=== PATIENT | male | born 1995 | race Caucasian/White ===

== ENCOUNTER 2017-06-04 17:21 | Emergency (ER) | payer OTHER ==
--- NOTE | 2017-06-04 17:41 | CPEKG ---
Heart Rate: 75 RR Interval: 800 P-R Interval: 140 QRSD Interval: 94 QT Interval: 348 QTC Interval: 389 P [place]: 78 QRS [place]: 115 T Wave [place]: 36 EKG Severity - ABNORMAL ECG - EKG Impression: SINUS RHYTHM EKG Impression: LEFT POSTERIOR FASCICULAR BLOCK EKG Impression: LOW VOLTAGE WITH RIGHT AXIS DEVIATION Electronically Signed By: Jose Miguel Voss 04-Jun-2017 21:19:50
--- NOTE | 2017-06-04 18:08 | EDPHY ---
H & P Time Seen by Provider: 06/04/17 18:01 HPI/ROS: Chief complaint. Shortness of breath, dark stools HPI. 21-year-old male presents with multiple complaints. Today at 11:00 a.m. he had a 10-15 minutes episode of sharp left anterior chest pain without radiation. There was some associated shortness of breath. However his discomfort was not worse with breathing or exertion. It was better with stretching. He then developed a migraine which he has had before he has had similar symptoms previously. Then this afternoon he noticed black tarry stools. Some periumbilical abdominal pain. No vomiting or diarrhea. ROS Constitutional. no fever/chills, no weakness Eyes. no problems with vision ENT. no sore throat, no nasal drainage Cardiovascular. Chest pain Respiratory. Shortness of breath Abdominal. Abdominal pain with black stools . no problems urinating MS. no calf pain/swelling, no neck/back pain, no joint pain Skin. no rash Lymph. no swollen glands Neuro. Headache Past Medical/Surgical History: Ankylosing spondylitis and rheumatoid arthritis Social History: Single, nonsmoker, no alcohol Smoking Status: Never smoked Physical Exam: General Appearance: Alert well-developed male mild distress vital signs stable Eyes: Pupils equal and round no pallor or injection. ENT, Mouth: Mucous membranes are moist. Respiratory: There are no retractions, lungs are clear to auscultation. Cardiovascular: Regular rate and rhythm. Gastrointestinal: Abdomen is soft with mild tenderness in the periumbilical as well as slight tenderness in the right lower quadrant. Normal bowel sounds. No masses. Rectal exam shows minimal stool Neurological: Awake and alert, sensory and motor exams grossly normal. Skin: Warm and dry, no rashes. Musculoskeletal: Neck is supple nontender. Extremities symmetrical, full range of motion. Psychiatric: Patient is oriented X 3, there is no agitation. Constitutional: Initial Vital Signs Temperature (C) 36.7 C 06/04/17 17:25 Heart Rate 88 06/04/17 17:25 Respiratory Rate 22 H 06/04/17 17:25 Blood Pressure 107/91 H 06/04/17 17:25 O2 Sat (%) 100 06/04/17 17:25 O2 Delivery Mode Room Air Allergies/Adverse Reactions: warfarin Allergy (Verified 06/04/17 17:24) Home Medications: Medication Instructions Recorded Adderall 10 MG (*) 06/04/17 Esomeprazole Mag Trihydrate 40 mg PO DAILY #10 shreman. 06/04/17 [Nexium] FOLIC ACID 06/04/17 Meloxicam 06/04/17 Methotrexate 06/04/17 Medical Decision Making - Diagnostics EKG Interpretation: EKG interpreted by me shows normal sinus rhythm with normal interval and axis. QRS shows a left posterior fascicular block. No significant ST elevation or depression. No arrhythmia. The rate is 70 Imaging Results: Imaging Impressions Chest X-Ray 06/04/17 18:21 Impression: No acute pulmonary disease. Procedures: IV normal saline ED Course/Re-evaluation: Re-evaluation 7:30 p.m.. Patient and I discussed laboratory evaluation, EKG findings, imaging studies, treatment plan including criteria for return importance of follow-up. He expresses understanding and agreement Patient has no abdominal pain, chest pain or shortness of breath Differential Diagnosis: I considered peptic ulcer disease, methotrexate toxicity, gastritis - Data Points Laboratory Results: Laboratory Results 06/04/17 17:45 06/04/17 17:45 06/04/17 06/04/17 06/04/17 18:15 17:45 17:45 WBC RBC Hgb Hct MCV MCH MCHC RDW Plt Count MPV Neut % (Auto) Lymph % (Auto) [place] % (Auto) Eos % (Auto) Baso % (Auto) Nucleat RBC Rel Count Absolute Neuts (auto) Absolute Lymphs (auto) Absolute Monos (auto) Absolute Eos (auto) Absolute Basos (auto) Absolute Nucleated RBC Immature Gran % Immature Gran # D-Dimer < 0.27 ug/mLFEU ug/mLFEU (0.00-0.50) Sodium 146 mEq/L H mEq/L (134-144) Potassium 3.7 mEq/L mEq/L (3.5-5.2) Chloride 104 mEq/L mEq/L (97-110) Carbon Dioxide 26 mEq/l mEq/l (22-31) Anion Gap 16 mEq/L mEq/L (8-16) BUN 23 mg/dL mg/dL (7-23) Creatinine 1.0 mg/dL mg/dL (0.7-1.3) Estimated GFR > 60 Glucose 85 mg/dL mg/dL (70-100) Calcium 10.1 mg/dL mg/dL (8.5-10.4) Troponin I < 0.012 ng/mL ng/mL (0-0.034) Stool Occult Bld Scrn POSITIVE H (NEGATIVE) 06/04/17 17:45 WBC 6.55 10^3/uL 10^3/uL (3.80-9.50) RBC 5.56 10^6/uL 10^6/uL (4.40-6.38) Hgb 16.8 g/dL g/dL (13.7-17.5) Hct 48.1 % % (40.0-51.0) MCV 86.5 fL fL (81.5-99.8) MCH 30.2 pg pg (27.9-34.1) MCHC 34.9 g/dL g/dL (32.4-36.7) RDW 12.6 % % (11.5-15.2) Plt Count 209 10^3/uL 10^3/uL (150-400) MPV 10.2 fL fL (8.7-11.7) Neut % (Auto) 67.1 % % (39.3-74.2) Lymph % (Auto) 23.4 % % (15.0-45.0) [place] % (Auto) 5.2 % % (4.5-13.0) Eos % (Auto) 2.7 % % (0.6-7.6) Baso % (Auto) 0.5 % % (0.3-1.7) Nucleat RBC Rel Count 0.0 % % (0.0-0.2) Absolute Neuts (auto) 4.40 10^3/uL 10^3/uL (1.70-6.50) Absolute Lymphs (auto) 1.53 10^3/uL 10^3/uL (1.00-3.00) Absolute Monos (auto) 0.34 10^3/uL 10^3/uL (0.30-0.80) Absolute Eos (auto) 0.18 10^3/uL 10^3/uL (0.03-0.40) Absolute Basos (auto) 0.03 10^3/uL 10^3/uL (0.02-0.10) Absolute Nucleated RBC 0.00 10^3/uL 10^3/uL (0-0.01) Immature Gran % 1.1 % % (0.0-1.1) Immature Gran # 0.07 10^3/uL 10^3/uL (0.00-0.10) D-Dimer Sodium Potassium Chloride Carbon Dioxide Anion Gap BUN Creatinine Estimated GFR Glucose Calcium Troponin I Stool Occult Bld Scrn Departure - Departure Disposition: Home, Routine, Self-Care Clinical Impression: Upper GI bleed Condition: Good Instructions: Gastrointestinal Bleeding (ED) Additional Instructions: Stop the methotrexate and discuss this with your electric cutter operator. Nexium to help heal stomach and upper intestine. Return for worsening pain or bleeding or further chest discomfort or trouble breathing. Call Gastroenterology tomorrow to schedule appointment Referrals: Óscar Bergeron MD [Primary Care Provider] - As per Instructions Jerome Mcdonald MD [[facility] Primary Care Provider] - 2-3 days, call for appt. Prescriptions: Esomeprazole Mag Trihydrate [Nexium] 40 mg PO DAILY #10 cap.
[2017-06-04 18:27] LABS: % IMMATURE GRANULYOCYTES 1.1 % (0.0-1.1); ABSOLUTE IMMATURE GRANULOCYTES 0.07 10^3/uL (0.00-0.10); ADD DIFF? NO; ADD MORPH? NO; ADD SCAN? NO; ATYPICAL LYMPHOCYTE FLAG 0 (0-99); FRAGMENT RBC FLAG 0 (0-99); HEMATOCRIT 48.1 % (40.0-51.0); HEMOGLOBIN 16.8 g/dL (13.7-17.5); LEFT SHIFT FLG 0 (0-99); LIPEMIA HEMOLYSIS FLAG 90 (0-99); MEAN CELL HEMOGLOBIN 30.2 pg (27.9-34.1); MEAN CELL HEMOGLOBIN CONCENTR. 34.9 g/dL (32.4-36.7); MEAN CELL VOLUME 86.5 fL (81.5-99.8); MEAN PLATELET VOLUME 10.2 fL (8.7-11.7); PLATELET CLUMPS FLAG 0 (0-99); PLATELET COUNT 209 10^3/uL (150-400); RED BLOOD CELL COUNT 5.56 10^6/uL (4.40-6.38); RED CELL DISTRIBUTION WIDTH 12.6 % (11.5-15.2)
[2017-06-04 18:43] LABS: ANION GAP 16 mEq/L (8-16); CALCIUM 10.1 mg/dL (8.5-10.4); CARBON DIOXIDE 26 mEq/l (22-31); CHLORIDE 104 mEq/L (97-110); GLOMERULAR FILTRATION RATE > 60; GLUCOSE 85 mg/dL (70-100); POTASSIUM 3.7 mEq/L (3.5-5.2); SODIUM 146 mEq/L (134-144)
[2017-06-04 18:54] LABS: TROPONIN I < 0.012 ng/mL (0-0.034)
[2017-06-04 19:36] VITALS: RESP 18
[2017-06-04 20:04] VITALS: BP 123/74; PULSE 69; TEMP 97.7; O2SAT 97
== END 2017-06-04 20:03 | disposition home or self-care (01) ==
DX: K92.2 Gastrointestinal hemorrhage, unspecified (principal); R06.02 Shortness of breath

== ENCOUNTER → 2017-08-28 | Outpatient (CLI) | payer OTHER | LOC: CIMAGING 16:49 | PROVIDERS: ATTEND Family Medicine | DX: K59.00 Constipation, unspecified (principal) | CPT/HCPCS: 74000-PO ==